=== PATIENT | female | born 1940 | race Two or more races ===

== ENCOUNTER → 2024-03-30 | Emergency (ER) | payer OTHER ==
[~2024-03-30] VITALS: Ht 160 cm; Wt 45.8 kg
[~2024-03-30] MED LIST: DEXAMETHASONE SODIUM PHOSPHATE 4 MG/ML VIAL IM STA; SYNTHROID75 MCG PO
[2024-03-30 09:16] LABS: HEMOGLOBIN 12.8 g/dL (12.0-15.00); MEAN CELL VOLUME 92.2 fL (80.00-100.00); MEAN CORPUSCULAR HEMOGLOBIN 31.2 pg (27.00-32.0); MEAN CORPUSCULAR HGB CONC 33.8 g/dl (32.0-36.0); PLATELET COUNT 227 K/uL (150-450); RED BLOOD COUNT 4.12 M/uL (4.00-6.00); RED CELL DISTRIBUTION WIDTH 14.4 % (11.5-14.5)
== END | disposition left against medical advice (07) ==
LOC: ER 06:37
PROVIDERS: General Practice
DX: R07.0 Pain in throat (principal); M19.90 Unspecified osteoarthritis, unspecified site; Z88.0 Allergy status to penicillin; Z20.822 Contact with and (suspected) exposure to COVID-19
CPT/HCPCS: 36415; 96372; 99282; J1100